=== PATIENT | male | born 1960 | race Hispanic/Latino ===

== ENCOUNTER 2019-12-10 18:34 | Inpatient (IN) | payer SELFPAY ==
[~2019-12-10] VITALS: Ht 170.2 cm; Wt 76.8 kg
[2019-12-10 19:02] LABS: BASOPHILS % 0.1 % (0.0-1.0); HEMATOCRIT 42.5 % (38.2-49.6); HEMOGLOBIN 14.1 g/dL (14.0-18.0); LYMPHOCYTES # (AUTO) 0.8 (1.0-3.2); LYMPHOCYTES % 5.6 % (18.0-39.1); MEAN CORPUSCULAR HEMOGLOBIN 30.4 pg (28-32); MEAN CORPUSCULAR HGB CONC 33.2 g/dL (31-35); MEAN CORPUSCULAR VOLUME 91.6 fL (81-99); MONOCYTES # (AUTO) 0.9 (0.2-0.8); NEUTROPHILS % 86.7 % (38.7-80.0); PLATELET COUNT 231 x10e3/uL (140-360); RED BLOOD COUNT 4.64 x10e6/uL (4.3-5.7); RED CELL DISTRIBUTION WIDTH 13.2 % (11.7-14.4)
--- NOTE | 2019-12-10 19:02 | Emergency Department Note ---
History of Present Illnes History of Present Illness Chief Complaint: COVID PUI History of Present Illness This is a 59 year old maleSICK X 3 WKS WITH ZABALA S/S. PT STATES INCREASING SOB WITH MINIMAL EXCERTION. PT AAOX4. EMS STATES PT ALREADY HAS HOME OXYGEN, BUT PT STATES HE WAS NEVER TESTED FOR ZBAALA/COVID. PT DIARRHEA, COUGH, SOB. PER EMS INITIAL O2 SATS 88% ON ROOM AIR AND 93% ON OXYGEN 4LPM VIA NC . 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, Credit Analyst/EMS Arrival Mode: [facility] Treatment LOG GETTER: IV, O2, EKG, Backboard, See EMS Report Additional Treatment LOG GETTER: 18G LEFT AC Onset (how long ago): week(s) (3) Location: CHEST Quality: SOB, COUGH Radiation: Reports non-radiation Severity: severe Onset quality: gradual Duration (how long): week(s) (3) Timing of current episode: constant Progression: worsening Chronicity: new Context: Reports recent illness (SCK FOR PAST 3 WEEKS); Denies recent surgery Relieving factors: none Exacerbating factors: movement Associated symptoms: Reports cough, Reports shortness of breath, Reports other (DIARRHEA) Treatments prior to arrival: none Past Medical/Family History Physician Review I have reviewed the patient's past medical and family history. Any updates have been documented here. Past Medical History Recent Fever: No Clinical Suspicion of Infectio: Yes New/Unexplained Change in Ment: No Past Medical History: Hypertension Past Surgical History: None Social History Smoking Cessation: Never Smoker Counseling Performed: No Alcohol Use: None Any Illegal Drug Use: No Physically hurt or threatened: No Family History Family history of heart diseas: No Other family history HTN Other Any Pre-Existing Lines (PICC,: No Review of Systems Review of Systems Constitutional: Reports no symptoms EENTM: Reports no symptoms Cardiovascular: Reports no symptoms Respiratory: Reports as per HPI Gastrointestinal: Reports as per HPI Genitourinary: Reports no symptoms Musculoskeletal: Reports no symptoms Integumentary: Reports no symptoms Neurological: Reports no symptoms Psychological: Reports no symptoms Endocrine: Reports no symptoms Hematological/Lymphatic: Reports no symptoms Physical Exam Related Data Allergies: Coded Allergies: No Known Allergies (Unverified , 12/10/19) Triage Vital Signs Vital Signs Date Time Temp Pulse Resp B/P (MAP) Pulse Ox O2 Delivery O2 Flow Rate FiO2 12/10/19 18:37 99.1 66 24 164/87 93 Nasal Cannula 4.0 Vital signs reviewed: Yes Physical Exam CONSTITUTIONAL Constitutional: Present well-developed, Present well-nourished HENT HENT: Present normocephalic, Present atraumatic, Present oropharynx clear/moist , Present nose normal HENT L/R: Present left ext ear normal, Present right ext ear normal EYES Eyes: Reports PERRL, Reports conjunctivae normal NECK Neck: Present ROM normal PULMONARY Pulmonary: Present effort normal, Present respiratory distress (MILD TACHYPNEA RR 24. ), Present rhonchi (MILD AT BASES BILATERAL) CARDIOVASCULAR Cardiovascular: Present regular rhythm, Present heart sounds normal, Present capillary refill normal, Present normal rate GASTROINTESTINAL Abdominal: Present soft, Present nontender, Present bowel sounds normal GENITOURINARY Genitourinary: Present exam deferred SKIN Skin: Present warm, Present dry MUSCULOSKELETAL Musculoskeletal: Present ROM normal NEUROLOGICAL Neurological: Present alert, Present oriented x 3, Present no gross motor or sensory deficits PSYCHOLOGICAL Psychological: Present mood/affect normal, Present judgement normal Results Laboratory Laboratory Laboratory Tests Test 12/10/19 18:45 White Blood Count 14.95 x10e3/uL (4.8-10.8) Red Blood Count 4.64 x10e6/uL (4.3-5.7) Hemoglobin 14.1 g/dL (14.0-18.0) Hematocrit 42.5 % (38.2-49.6) Mean Corpuscular Volume 91.6 fL (81-99) Mean Corpuscular Hemoglobin 30.4 pg (28-32) Mean Corpuscular Hemoglobin Concent 33.2 g/dL (31-35) Red Cell Distribution Width 13.2 % (11.7-14.4) Platelet Count 231 x10e3/uL (140-360) Neutrophils (%) (Auto) 86.7 % (38.7-80.0) Lymphocytes (%) (Auto) 5.6 % (18.0-39.1) Monocytes (%) (Auto) 6.0 % (4.4-11.3) Eosinophils (%) (Auto) 0.0 % (0.0-6.0) Basophils (%) (Auto) 0.1 % (0.0-1.0) Neutrophils # (Auto) 13.0 (2.1-6.9) Lymphocytes # (Auto) 0.8 (1.0-3.2) Monocytes # (Auto) 0.9 (0.2-0.8) Eosinophils # (Auto) 0.0 (0.0-0.4) Basophils # (Auto) 0.0 (0.0-0.1) Absolute Immature Granulocyte (auto 0.24 x10e3/uL (0-0.1) Prothrombin Time 14.6 seconds (11.9-14.5) Prothromb Time International Ratio 1.08 Activated Partial Thromboplast Time 23.5 seconds (23.8-35.5) Sodium Level 139 mmol/L (136-145) Potassium Level 4.9 mmol/L (3.5-5.1) Chloride Level 106 mmol/L (98-107) Carbon Dioxide Level 21 mmol/L (22-29) Anion Gap 16.9 mmol/L (8-16) Blood Urea Nitrogen 31 mg/dL (7-26) Creatinine 1.22 mg/dL (0.72-1.25) Estimat Glomerular Filtration Rate > 60 ML/MIN (60-) BUN/Creatinine Ratio 25 (6-25) Glucose Level 120 mg/dL (74-118) Calcium Level 7.8 mg/dL (8.4-10.2) Total Bilirubin 0.5 mg/dL (0.2-1.2) Aspartate Amino Transf (AST/SGOT) 51 IU/L (5-34) Alanine Aminotransferase (ALT/SGPT) 22 IU/L (0-55) Alkaline Phosphatase 64 IU/L (40-150) Creatine Kinase 148 IU/L (30-200) Creatine Kinase MB 1.00 ng/mL (0-5.0) Troponin I 0.006 ng/mL (0-0.300) B-Type Natriuretic Peptide 151.6 pg/mL (0-100) Total Protein 6.3 g/dL (6.5-8.1) Albumin 2.5 g/dL (3.5-5.0) Globulin 3.8 g/dL (2.3-3.5) Albumin/Globulin Ratio 0.7 (0.8-2.0) Laboratory Tests Test 12/10/19 18:45 Lab results reviewed: Yes Imaging Imaging results reviewed: Yes Impressions Procedure: [id number] DX/CHEST SINGLE (PORTABLE) Exam Date: 12/10/19 Exam Time: 1912 REPORT STATUS: Signed EXAMINATION: CHEST SINGLE (PORTABLE) INDICATION: Shortness of breath and hypoxia. COMPARISON: None FINDINGS: TUBES and LINES: None. LUNGS: Low lung volumes with bronchovascular crowding. There is diffuse interstitial prominence throughout both lungs. PLEURA: No pleural effusion or pneumothorax. HEART AND MEDIASTINUM: The heart is mildly enlarged. Mediastinal contours within normal limits. BONES AND SOFT TISSUES: No acute osseous lesion. Soft tissues are unremarkable. UPPER ABDOMEN: No free air under the diaphragm. IMPRESSION: Cardiomegaly with diffuse interstitial prominence throughout both lungs which most likely interstitial pulmonary edema. Superimposed multifocal infection cannot be excluded. Follow-up to resolution. Signed by: Lina Pino MD on 12/10/2019 7:34 PM Dictated By: LINA PINO MD 193 Procedures 12 Lead ECG Interpretation ECG Interpretation : ECG: ECG 1 Brusher Tender: Interpreted by ED physician Date: Dec 10, 2019 Time: 18:34 Rhythm: sinus rhythm Rate: normal BPM: 66 QRS axis: normal ST segments normal: Yes T waves normal: Yes Other findings: no other findings Clinical Impression: non-specific ECG Additional Comments MOTION ARTIFACT PRESENT Critical Care Time Total Critical Care Time (min): 31 Critcal care necessary due to: respiratory failure Critcal care time spent by me: develop tx plan w patient/surrogate, interpret cardiac output measures, evaluation patient response to tx, examination of patient, obtaining hx from patient/surrogate, order/perform tx or interventions, order/review laboratory studies, order/review radiographic studies, pulse oximetry, re-evaluation of patient condition Assessment & Plan Medical Decision Making MDM PT WITH SOB, COUGH, HYPOXIA REQUIRING SUPPLEMENTAL OXYGEN CBC, CMP, BLOOD CULTURE, COVID 19, EKG, CARDIAC ENZYMES,CXR ORDERED TO EVAL FOR PNEUMONIA, PULMONARY EDEMA,MYOCARDIAL INFARCTION, COVID 19, ELECTROLYTE ABNORMALITY ROCEPHIN 1 GRAM IV ORDERED ZITHROMAX 500 MG IV ORDERED DEXAMETHASONE 6 MG IV ORDERED CXR SHOWS EVIDENCE OF PULMONARY EDEMA BUT CANT RULE OUT MULTIFOCAL INFILTRATES, BNP SIGHTLY ELEVATED AT 151, NO PEDAL EDEMA, BREATH SOUNDS ARE NOT CONSISTENT WITH CHF EITHER. LASIX 40 MG IV ORDERED, COVID 19 TEST IS STILL PENDING I SPOKE WITH DR SOSA, DR CUELLO, AND LEFT A MESSAGE FOR DR HECK Reassessment Reassessment time: 19:35 Reassessment PT'S OXYGEN SATURATION DROPPED TO 89 % NOW WILL REQUIRE HIGH FLOW 02 VIA NC. ON HIGH FLOW O2 15LPM VIA NC OXYGEN SATURATION IS 96%. Assessment & Plan Final Impression: (1) Suspected COVID-19 virus infection (2) Hypoxemia requiring supplemental oxygen Depart Disposition: ADMITTED Last Vital Signs Date Time Temp Pulse Resp B/P (MAP) Pulse Ox O2 Delivery O2 Flow Rate FiO2 12/10/19 18:50 65 29 144/85 94 Nasal Cannula 6.0 12/10/19 18:37 99.1 Medications in the ED Ceftriaxone Sodium 50 ml @ 100 mls/hr ONCE ONCE IV ; Start 12/10/19 at 18:45; Stop 12/10/19 at 19:14; Status UNV Azithromycin 250 ml @ 200 mls/hr NOW ONCE IV ; Start 12/10/19 at 18:45; Stop 12/10/19 at 19:59; Status UNV Dexamethasone Sodium Phosphate 6 mg ONCE ONCE IV ; Start 12/10/19 at 18:45; Stop 12/10/19 at 18:46; Status UNV BRIAN UREÑA MD Dec 10, 2019 19:01
[2019-12-10] MEDS ORDERED: CEFTRIAXONE SOD 1 GM/NS 50 ML 50 ML IV ONE (19:09)
[2019-12-10] MEDS ORDERED: AZITHROMYCIN 500MG/NS 250 ML 250 ML IV ONE (19:10)
[2019-12-10 19:12] LABS: INR 1.08; PROTHROMBIN TIME 14.6 seconds (11.9-14.5)
[2019-12-10 19:13] LABS: PARTIAL THROMBOPLASTIN TIME 23.5 seconds (23.8-35.5)
[2019-12-10] MEDS ORDERED: DEXAMETHASONE SOD PHOS INJ 4 MG/ML VIAL IV ONE (19:15)
[2019-12-10 19:22] LABS: ALANINE AMINOTRANSFERASE 22 IU/L (0-55); ALBUMIN 2.5 g/dL (3.5-5.0); ALBUMIN/GLOBULIN RATIO 0.7 (0.8-2.0); ALKALINE PHOSPHATASE 64 IU/L (40-150); ANION GAP 16.9 mmol/L (8-16); BLOOD UREA NITROGEN 31 mg/dL (7-26); BUN/CREATININE RATIO 25 (6-25); CALCIUM 7.8 mg/dL (8.4-10.2); CARBON DIOXIDE 21 mmol/L (22-29); CHLORIDE 106 mmol/L (98-107); CREATINE KINASE 148 IU/L (30-200); CREATININE, SERUM 1.22 mg/dL (0.72-1.25); EST GLOMERULAR FILTRATION RATE > 60 ML/MIN (60-); GLUCOSE 120 mg/dL (74-118); POTASSIUM 4.9 mmol/L (3.5-5.1); SODIUM 139 mmol/L (136-145)
--- NOTE | 2019-12-10 19:37 | Diagnostic Imaging Report ---
EXAMINATION: CHEST SINGLE (PORTABLE) INDICATION: Shortness of breath and hypoxia. COMPARISON: None FINDINGS: TUBES and LINES: None. LUNGS: Low lung volumes with bronchovascular crowding. There is diffuse interstitial prominence throughout both lungs. PLEURA: No pleural effusion or pneumothorax. HEART AND MEDIASTINUM: The heart is mildly enlarged. Mediastinal contours within normal limits. BONES AND SOFT TISSUES: No acute osseous lesion. Soft tissues are unremarkable. UPPER ABDOMEN: No free air under the diaphragm. IMPRESSION: Cardiomegaly with diffuse interstitial prominence throughout both lungs which most likely interstitial pulmonary edema. Superimposed multifocal infection cannot be excluded. Follow-up to resolution. Signed by: Lina Alcantara MD on 12/10/2019 7:34 PM
--- NOTE | 2019-12-10 19:41 | NUR ---
patient O2 sat 90% on 6 liters per nasal cannula while at rest on gurney. MD notified, RT contacted to initiate high flow.
[2019-12-10] MEDS ORDERED: FUROSEMIDE INJ 10 MG/ML 4 ML VIAL IV ONE (21:30)
[2019-12-10] MEDS ORDERED: ACETAMINOPHEN 325 MG TAB PO PRN (23:00)
[2019-12-10] MEDS ORDERED: SODIUM CHLORIDE FLUSH 10 ML SYR INJ PRN (23:00)
--- NOTE | 2019-12-10 23:05 | NUR ---
Handoff report received from Karina MENSAH
[2019-12-10] MEDS ORDERED: ENOXAPARIN INJ 80 MG/0.8 ML SYR SC SCH (23:10)
[2019-12-10] MEDS: CEFTRIAXONE SOD 1 GRAM/0.9% SOD CHL 50ML BAG IV SCH (23:35)
[2019-12-10] MEDS: AZITHROMYCIN 500MG/SOD CHL 0.9% 250ML BAG IV SCH (23:37)
[2019-12-10] MEDS: DEXAMETHASONE 10MG/ML PF INJ IV SCH (23:37)
[2019-12-11] VITALS (15 sets, daily range): BP systolic 108–153; BP diastolic 48–91
--- NOTE | 2019-12-11 05:48 | NUR ---
H&P cc: sob HPI: 59yoM, PCP none, developed worsening SOB, found to have PNA and pulmonary edema. Pt has been SOB for 2 weeks. Also had N/V/D and f/c/S during this period. 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 No know COVID sick contact, per pt. PMH: none PSHx: none ALlergies; see emr FH/SH; no cigs/illicits; works as winch truck operator meds; see MAR ROS; no vision changes/skin rash/cp/dizziness/confusion/focal limb weakness/depression v/s revd PE tired appearing anicteric ns1s2 reduced BS throughout; mildly coarse; soft nt nd no e/t skin dry flat affect a&ox3; toure labs/meds revd A/P: 59yoM Multifocal PNA- ceftriaxone/azithromycin PUlmonary edema- Acute resp failure- Highflo O2 support MARTA- monitor closely; avoid nephrotoxic agents Prop: scd; lovenox; dispo:cct>35mins Ildefonso Cast MD, PhD.
[2019-12-11 05:57] LABS: BASOPHILS % 0.2 % (0.0-1.0); HEMATOCRIT 41.7 % (38.2-49.6); HEMOGLOBIN 13.8 g/dL (14.0-18.0); LYMPHOCYTES # (AUTO) 0.8 (1.0-3.2); LYMPHOCYTES % 6.4 % (18.0-39.1); MEAN CORPUSCULAR HEMOGLOBIN 30.6 pg (28-32); MEAN CORPUSCULAR HGB CONC 33.1 g/dL (31-35); MEAN CORPUSCULAR VOLUME 92.5 fL (81-99); MONOCYTES # (AUTO) 0.6 (0.2-0.8); MONOCYTES % 5.1 % (4.4-11.3); NEUTROPHILS # (AUTO) 10.6 (2.1-6.9); NEUTROPHILS % 86.6 % (38.7-80.0); PLATELET COUNT 207 x10e3/uL (140-360); RED BLOOD COUNT 4.51 x10e6/uL (4.3-5.7); RED CELL DISTRIBUTION WIDTH 13.3 % (11.7-14.4)
[2019-12-11] MEDS ORDERED: DOCUSATE SODIUM 100 MG CAP PO PRN (06:00)
[2019-12-11] MEDS ORDERED: ONDANSETRON HCL INJ 2MG/ML 2ML 2 MG/ML VIAL IV PRN (06:00)
[2019-12-11] MEDS ORDERED: ZOLPIDEM TARTRATE 5 MG TAB PO PRN (06:00)
[2019-12-11 06:37] LABS: ALBUMIN 2.3 g/dL (3.5-5.0); ALBUMIN/GLOBULIN RATIO 0.6 (0.8-2.0); ANION GAP 15.8 mmol/L (8-16); CREATININE, SERUM 1.41 mg/dL (0.72-1.25); POTASSIUM 4.8 mmol/L (3.5-5.1)
[2019-12-11 06:58] LABS: CREATINE KINASE MB 0.8 ng/mL (0-5.0)
--- NOTE | 2019-12-11 08:39 | Diagnostic Imaging Report ---
EXAM: CHEST SINGLE (PORTABLE) DATE: 12/11/2019 4:50 AM INDICATION: Pneumonia COMPARISON: 12/10/2019 FINDINGS: Again identified are increased interstitial opacities throughout the lungs bilaterally, similar to the prior examination. There is no evidence for lobar consolidation, pneumothorax, or significant volume pleural effusion. The cardiomediastinal silhouette is stable in appearance. No acute osseous abnormality is identified. IMPRESSION: Stable appearing interstitial opacities identified throughout the lungs bilaterally. Findings are nonspecific but can be seen in setting of edema or a multifocal/viral infectious process. Signed by: Dr. Harish Dumas MD on 12/11/2019 8:35 AM
--- NOTE | 2019-12-11 08:59 | NUR ---
GAVE PACKET OF INFORMATION WITH COMM[facility]ITY [employer] FOR ASSISTANCE WITH LOW TO NO INCOME TO PATIENT. RESOURCES THAT PATIENT MAY BE ABLE TO FOLLOW UP UPON DISCHARGE. PT EDUCATED ON EACH RESOURCE AND UNDERSTANDING HOW TO FOLLOW UP TO SEE IF QUALIFIED FOR EACH RESOURCE.
[2019-12-11] MEDS ORDERED: ENOXAPARIN INJ 80 MG/0.8 ML SYR SC SCH (09:00)
--- NOTE | 2019-12-11 09:22 | Consultation ---
DATE OF CONSULTATION: Pulmonary Consultation HISTORY OF PRESENT ILLNESS: The patient of Dr. Ildefonso Cast, reported unknown clinic. Apparently, he tested positive for COVID-19 three weeks ago. Initially, he had burning in his chest, diarrhea, and generalized weakness and loss of appetite. This week, he became increasingly short of breath. His cousin is also ill, but apparently recovered. ALLERGIES: HE HAS NO KNOWN ALLERGIES. PAST MEDICAL HISTORY: He has a history of hypertension. MEDICATIONS: No medications. SOCIAL HISTORY: Born in [place]. 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 PHYSICAL EXAMINATION: GENERAL: He is a well-developed white male, comfortable on nasal oxygen at 15 L. VITAL SIGNS: Temperature 98.4, pulse 61, respirations 18, blood pressure 151/82. HEAD: Normocephalic and atraumatic. NECK: Trachea midline. LUNGS: Bilateral rales. HEART: Regular rhythm. ABDOMEN: Nontender. EXTREMITIES: Nonedematous. IMPRESSION: COVID-19 pneumonia, cannot completely exclude superinfection illness, last three weeks, hypoxic now and hypertension. PLAN: Supportive care, Decadron, moderate dose Lovenox. Creatinine is moderately elevated at 1.4, but we will increase the Lovenox dose to 40 mg b.i.d., also recommended. ICU care, high-flow oxygen and AIRVO, if further desaturation is noted. Currently, saturation is 94% on 15 L nasal cannula. Thank you for this kind referral. MD KORY Lr/MODL /[id number]
[2019-12-11] MEDS ORDERED: ATENOLOL50 MG PO (09:49)
[2019-12-11] MEDS: LOSARTAN POTASSIUM 25 MG TAB PO SCH (12:51)
[2019-12-11] MEDS: ENOXAPARIN SOD INJ 40 MG/0.4 ML SYR SC SCH ×2 (12:52→23:14)
--- NOTE | 2019-12-11 13:08 | NUR ---
Discontinuing PT services since patient is Mod I in functional mobility. Thank you. Addendum: 12/11/19 at 1308 by Marck tanner PT Amended: Links added.
[2019-12-11 17:44] LABS: CREATINE KINASE MB 0.5 ng/mL (0-5.0)
[2019-12-11] MEDS: CEFTRIAXONE SOD 1 GRAM/0.9% SOD CHL 50ML BAG IV SCH (23:03)
[2019-12-11] MEDS ORDERED: SODIUM CHLORIDE 0.9% 250ML 250 ML ONE (23:19)
--- NOTE | 2019-12-11 23:46 | Consultation ---
DATE OF CONSULTATION: HISTORY OF PRESENT ILLNESS: Mr. Austin is a 59-year-old male who was tested positive for COVID three weeks ago. The patient comes in with shortness of breath. The patient had chest pain, diarrhea, weakness this week with some shortness of breath. The patient was admitted. PAST MEDICAL HISTORY: Otherwise unremarkable. PAST SURGICAL HISTORY: Otherwise unremarkable. LABORATORY DATA: Reviewed. White count 12.2, hemoglobin of 13. His COVID was positive. His sodium 139, potassium 4.9, creatinine 1.22, albumin 2.5. MEDICATIONS: The patient is currently on Lovenox, Cozaar, dexamethasone, azithromycin, ceftriaxone. PHYSICAL EXAMINATION: GENERAL: He is currently alert, oriented. VITAL SIGNS: Stable, currently afebrile. HEENT: He is not icteric. NECK: Supple. CHEST: Crackles bilaterally. HEART: S1, S2. ABDOMEN: Soft. IMPRESSION: Coronavirus disease-19, respiratory failure. Too late for remdesivir. Agree with antibiotic as ordered. Decadron. Lovenox. Supportive care. We will follow. MD MEDHAT Tong/VINANEY /[id number]
[2019-12-12] VITALS (20 sets, daily range): BP systolic 99–120; BP diastolic 64–104
[2019-12-12] MEDS: AZITHROMYCIN 500MG/SOD CHL 0.9% 250ML BAG IV SCH ×2 (00:25→22:48)
[2019-12-12] MEDS: DEXAMETHASONE 10MG/ML PF INJ IV SCH (00:30)
--- NOTE | 2019-12-12 04:28 | NUR ---
"chair" denotes prone position in documentation of Q2 hour turns/repositioning.
[2019-12-12 05:30] LABS: BASOPHILS % 0.2 % (0.0-1.0); EOSINOPHILS # (AUTO) 0.1 (0.0-0.4); EOSINOPHILS % 0.4 % (0.0-6.0); HEMOGLOBIN 14.3 g/dL (14.0-18.0); LYMPHOCYTES # (AUTO) 0.6 (1.0-3.2); LYMPHOCYTES % 4.8 % (18.0-39.1); MEAN CORPUSCULAR HEMOGLOBIN 30.5 pg (28-32); MEAN CORPUSCULAR HGB CONC 32.5 g/dL (31-35); MEAN CORPUSCULAR VOLUME 93.8 fL (81-99); MONOCYTES # (AUTO) 0.4 (0.2-0.8); MONOCYTES % 3.1 % (4.4-11.3); NEUTROPHILS # (AUTO) 11.5 (2.1-6.9); NEUTROPHILS % 89.1 % (38.7-80.0); PLATELET COUNT 231 x10e3/uL (140-360); RED BLOOD COUNT 4.69 x10e6/uL (4.3-5.7); RED CELL DISTRIBUTION WIDTH 13.3 % (11.7-14.4)
--- NOTE | 2019-12-12 06:42 | NUR ---
IM progress note O/N see below ROS; no vision changes/skin rash/cp/dizziness/confusion/focal limb weakness/depression v/s revd PE tired appearing anicteric ns1s2 reduced BS throughout; mildly coarse; soft nt nd no e/t skin dry flat affect a&ox3; toure labs/meds revd A/P: 59yoM Multifocal PNA- ceftriaxone/azithromycin PUlmonary edema- Acute resp failure- Highflo O2 support MARTA- monitor closely; avoid nephrotoxic agents Prop: scd; lovenox; dispo:cct>35mins 7-30 cont care; f/u renal fn; cont care; Ildefonso Cast MD, PhD.
[2019-12-12 07:06] LABS: ALBUMIN 2.2 g/dL (3.5-5.0); ALBUMIN/GLOBULIN RATIO 0.5 (0.8-2.0); ANION GAP 12.9 mmol/L (8-16); CALCIUM 8.2 mg/dL (8.4-10.2); CREATININE, SERUM 1.36 mg/dL (0.72-1.25); POTASSIUM 4.9 mmol/L (3.5-5.1)
[2019-12-12] MEDS: LOSARTAN POTASSIUM 25 MG TAB PO SCH (08:01)
[2019-12-12] MEDS: ASCORBIC ACID 500 MG TAB PO SCH ×2 (08:01→17:41)
[2019-12-12] MEDS: ZINC SULFATE 220 MG CAP PO SCH (08:01)
--- NOTE | 2019-12-12 08:39 | Diagnostic Imaging Report ---
X-ray chest AP portable Comparison: 12/10/2019 History: Covid pneumonia Findings: There is significant patient rotation on this film. Central airways unremarkable. Heart size normal. No definite pleural effusion. No pneumothorax. Asymmetric lung infiltrates with airspace/interstitial type disease pattern in the entire right lung in a heterogeneous pattern and mostly interstitial disease pattern in the left lung. No acute changes in the visualized skeletal structures are upper abdomen. Impression: Considering a different technique, there is significant worsening of the infiltrates in the right lung. Signed by: Ravin Amador MD on 12/12/2019 8:36 AM
--- NOTE | 2019-12-12 10:53 | NUR ---
Grommet Man called pt's nephewCarlos ([phone]) to offer emotional/spiritual support. Pt's nephew states he has been texting and using Ver[employer] to communicate w/ family on a daily basis. Pt's nephew open for [employer] follow up. Grommet Man provided information on how to communicate, if needed. Provided prayer. Pt's nephew expressed appreciation for call. Will follow up as able. THAD Herrera Spiritual Care Department O: [phone]
[2019-12-12] MEDS: ENOXAPARIN SOD INJ 40 MG/0.4 ML SYR SC SCH ×2 (12:15→23:11)
[2019-12-12] MEDS: CEFTRIAXONE SOD 1 GRAM/0.9% SOD CHL 50ML BAG IV SCH (22:12)
--- NOTE | 2019-12-12 22:15 | NUR ---
"chair" position denotes prone position in charting.
[2019-12-12] MEDS ORDERED: DEXAMETHASONE SOD PHOS INJ 4 MG/ML VIAL ONE (22:53)
[2019-12-12] MEDS: DEXAMETHASONE SOD PHOS INJ 4 MG/ML VIAL IV SCH (23:49)
[2019-12-13] VITALS (14 sets, daily range): BP systolic 98–125; BP diastolic 65–77
[2019-12-13 05:22] LABS: BASOPHILS % 0.1 % (0.0-1.0); EOSINOPHILS # (AUTO) 0.1 (0.0-0.4); EOSINOPHILS % 0.5 % (0.0-6.0); HEMATOCRIT 42.3 % (38.2-49.6); LYMPHOCYTES # (AUTO) 0.6 (1.0-3.2); MEAN CORPUSCULAR HEMOGLOBIN 32.2 pg (28-32); MEAN CORPUSCULAR HGB CONC 33.1 g/dL (31-35); MEAN CORPUSCULAR VOLUME 97.2 fL (81-99); MONOCYTES # (AUTO) 0.5 (0.2-0.8); MONOCYTES % 3.8 % (4.4-11.3); NEUTROPHILS # (AUTO) 10.8 (2.1-6.9); NEUTROPHILS % 88.9 % (38.7-80.0); PLATELET COUNT 218 x10e3/uL (140-360); RED BLOOD COUNT 4.35 x10e6/uL (4.3-5.7); RED CELL DISTRIBUTION WIDTH 13.3 % (11.7-14.4)
[2019-12-13 05:50] LABS: CALCIUM 8.3 mg/dL (8.4-10.2); CREATININE, SERUM 1.3 mg/dL (0.72-1.25)
--- NOTE | 2019-12-13 06:45 | NUR ---
IM progress note O/N see below ROS; no vision changes/skin rash/cp/dizziness/confusion/focal limb weakness/depression v/s revd PE tired appearing anicteric ns1s2 reduced BS throughout; mildly coarse; soft nt nd no e/t skin dry flat affect a&ox3; toure labs/meds revd A/P: 59yoM Multifocal PNA- ceftriaxone/azithromycin PUlmonary edema- Acute resp failure- Highflo O2 support MARTA- monitor closely; avoid nephrotoxic agents Prop: scd; lovenox; dispo:cct>35mins 7-30 cont care; f/u renal fn; cont care; 7-31 renal fn improving; CXR worse yesterday; supportive care; Ildefonso Cast MD, PhD.
[2019-12-13] MEDS: LOSARTAN POTASSIUM 25 MG TAB PO SCH (07:41)
[2019-12-13] MEDS: ZINC SULFATE 220 MG CAP PO SCH (07:42)
[2019-12-13] MEDS: ASCORBIC ACID 500 MG TAB PO SCH ×2 (07:42→17:58)
--- NOTE | 2019-12-13 09:47 | Progress Note ---
DATE: SUBJECTIVE: Mr. Austin remains in intensive care unit. PHYSICAL EXAMINATION: GENERAL: Currently alert, comfortable. VITAL SIGNS: Stable, afebrile. HEENT: Not icteric. NECK: Supple. CHEST: Clear. IMPRESSION: 1. Respiratory failure, on high-flow. 2. COVID-19, case was discussed with medical team. 3. Continue with plan as ordered, he is on vitamin C, Lovenox, dexamethasone, azithromycin, and Rocephin . Trae Arvizu MD ZS/MODL /[id number]
--- NOTE | 2019-12-13 13:00 | NUR ---
PATIENT TRANSFERRED FROM ICU TO ROOM 199, PATIENT IS AWAKE ALERT AND ORIENTED X3, VERBALIZING NEEDS, PLACED ON TELEMETRY, SINUS RHYTHM, HE IS ON 15L HIGH FLOW WITH NON-REBREATHER. REQUESTED BEDSIDE COMMODE, PLACED AT BEDSIDE, REQUESTED WIPES GIVEN TO PATIENT. BED IN LOW POSITION, BREAKS ON, BELONGINGS AND CALL LIGHT WITHIN REACH INSTRUCTED TO USE CALL LIGHT WHEN NEEDING ASSISTANCE, VERBALIZED UNDERSTANDING.
--- NOTE | 2019-12-13 16:48 | NUR ---
progress note HYSICAL EXAMINATION: GENERAL: He is currently alert, oriented. VITAL SIGNS: Stable, currently afebrile. HEENT: He is not icteric. NECK: Supple. CHEST: Crackles bilaterally. HEART: S1, S2. ABDOMEN: Soft. IMPRESSION: Coronavirus disease-19, respiratory failure. Too late for remdesivir. Agree with antibiotic as ordered. Decadron. Lovenox. Supportive care. We will follow. cont oxygen cont treatment
[2019-12-13] MEDS: ENOXAPARIN SOD INJ 40 MG/0.4 ML SYR SC SCH (17:58)
[2019-12-13] MEDS ORDERED: SODIUM CHLORIDE 0.9% 250ML 250 ML ONE (21:35)
[2019-12-13] MEDS: CEFTRIAXONE SOD 1 GRAM/0.9% SOD CHL 50ML BAG IV SCH (22:30)
[2019-12-13] MEDS: DEXAMETHASONE SOD PHOS INJ 4 MG/ML VIAL IV SCH (22:30)
[2019-12-13] MEDS: AZITHROMYCIN 500MG/SOD CHL 0.9% 250ML BAG IV SCH (23:00)
[2019-12-14] VITALS (10 sets, daily range): BP systolic 92–122; BP diastolic 62–77
[2019-12-14] MEDS: ENOXAPARIN SOD INJ 40 MG/0.4 ML SYR SC SCH ×2 (05:00→17:15)
--- NOTE | 2019-12-14 06:14 | NUR ---
Pt resting in bed asleep, easily aroused. No s/sx of acute distress. Pt asked this nurse when one of the O2 would be removed. NRB removed and observed pt drop O2 sats to mid 80's in short period of time. Educated pt on O2 therapy and saturation for body, pt verbalized understanding. Up to side of bed to urinate with no diff. VSS bed in low position and locked, personal items and all light within reach Will pass report to oncoming staff. Pt reports no discomfort at this time.
--- NOTE | 2019-12-14 07:02 | NUR ---
IM progress note O/N see below ROS; no vision changes/skin rash/cp/dizziness/confusion/focal limb weakness/depression v/s revd PE tired appearing anicteric ns1s2 reduced BS throughout; mildly coarse; soft nt nd no e/t skin dry flat affect a&ox3; toure labs/meds revd A/P: 59yoM Multifocal PNA- ceftriaxone/azithromycin PUlmonary edema- Acute resp failure- Highflo O2 support MARTA- monitor closely; avoid nephrotoxic agents Prop: scd; lovenox; dispo:cct>35mins 7-30 cont care; f/u renal fn; cont care; 7-31 renal fn improving; CXR worse yesterday; supportive care; 8-1 check labs; high O2 needs; cont care; Ildefonso Cast MD, PhD.
[2019-12-14] MEDS: ASCORBIC ACID 500 MG TAB PO SCH ×2 (09:58→17:15)
[2019-12-14] MEDS: ZINC SULFATE 220 MG CAP PO SCH (09:58)
[2019-12-14] MEDS: LOSARTAN POTASSIUM 25 MG TAB PO SCH (09:59)
--- NOTE | 2019-12-14 19:58 | NUR ---
Received pt in bed awake a/o x4. No c/o discomfort, no s/sx of acute distress. Bed in low and locked position with personal items and call light within reach. Resp even and unlabored at this time, Hi flow NRB and nc remain in place. Will con to monitor
[2019-12-14] MEDS: DEXAMETHASONE SOD PHOS INJ 4 MG/ML VIAL IV SCH (22:00)
[2019-12-14] MEDS: CEFTRIAXONE SOD 1 GRAM/0.9% SOD CHL 50ML BAG IV SCH (23:00)
[2019-12-14] MEDS: AZITHROMYCIN 500MG/SOD CHL 0.9% 250ML BAG IV SCH (23:30)
[2019-12-15] VITALS (8 sets, daily range): BP systolic 94–136; BP diastolic 68–86
[2019-12-15] MEDS: ENOXAPARIN SOD INJ 40 MG/0.4 ML SYR SC SCH ×2 (05:00→16:26)
[2019-12-15 06:16] LABS: BASOPHILS % 0.1 % (0.0-1.0); EOSINOPHILS % 0.1 % (0.0-6.0); HEMATOCRIT 43.5 % (38.2-49.6); HEMOGLOBIN 14.3 g/dL (14.0-18.0); LYMPHOCYTES # (AUTO) 0.5 (1.0-3.2); LYMPHOCYTES % 4.8 % (18.0-39.1); MEAN CORPUSCULAR HEMOGLOBIN 31.4 pg (28-32); MEAN CORPUSCULAR HGB CONC 32.9 g/dL (31-35); MEAN CORPUSCULAR VOLUME 95.6 fL (81-99); MONOCYTES # (AUTO) 0.4 (0.2-0.8); MONOCYTES % 4.2 % (4.4-11.3); NEUTROPHILS % 89.2 % (38.7-80.0); PLATELET COUNT 231 x10e3/uL (140-360); RED BLOOD COUNT 4.55 x10e6/uL (4.3-5.7); RED CELL DISTRIBUTION WIDTH 12.9 % (11.7-14.4)
[2019-12-15 06:44] LABS: ANION GAP 12.1 mmol/L (8-16); BLOOD UREA NITROGEN 37 mg/dL (7-26); BUN/CREATININE RATIO 34 (6-25); CALCIUM 8.7 mg/dL (8.4-10.2); CARBON DIOXIDE 23 mmol/L (22-29); CHLORIDE 108 mmol/L (98-107); CREATININE, SERUM 1.08 mg/dL (0.72-1.25); EST GLOMERULAR FILTRATION RATE > 60 ML/MIN (60-); GLUCOSE 139 mg/dL (74-118); POTASSIUM 5.1 mmol/L (3.5-5.1); SODIUM 138 mmol/L (136-145)
[2019-12-15] MEDS: ZINC SULFATE 220 MG CAP PO SCH (09:50)
[2019-12-15] MEDS: ASCORBIC ACID 500 MG TAB PO SCH ×2 (09:50→16:26)
[2019-12-15] MEDS: LOSARTAN POTASSIUM 25 MG TAB PO SCH (09:53)
--- NOTE | 2019-12-15 10:46 | Diagnostic Imaging Report ---
EXAMINATION: CHEST SINGLE (PORTABLE) INDICATION: Follow-up pneumonia. COMPARISON: Multiple prior chest x-rays including most recent on 12/12/2019. FINDINGS: TUBES and LINES: None. LUNGS: Interval improvement of multifocal patchy airspace opacity compatible with known pneumonia. PLEURA: No pleural effusion or pneumothorax. HEART AND MEDIASTINUM: The cardiomediastinal silhouette is unchanged. BONES AND SOFT TISSUES: No acute osseous lesion. Soft tissues are unremarkable. UPPER ABDOMEN: No free air under the diaphragm. IMPRESSION: Interval improvement in patchy airspace opacities throughout both lungs compatible with known multifocal pneumonia. Signed by: Lina Alcantara MD on 12/15/2019 10:42 AM
--- NOTE | 2019-12-15 13:25 | NUR ---
INFECTIOUS DISEASE PROGRESS NOTE DR HECK SUBJECTIVE: Mr. Austin remains in intensive care unit. PHYSICAL EXAMINATION: GENERAL: Currently alert, comfortable. VITAL SIGNS: Stable, afebrile. HEENT: Not icteric. NECK: Supple. CHEST: Clear. LABS: REVIEWED RADIOLOGY: REVIEWED IMPRESSION: 1. Respiratory failure, on high-flow. 2. COVID-19, case was discussed with medical team. PLAN Continue with plan as ordered, he is on vitamin C, Lovenox, dexamethasone, azithromycin, and Rocephin PT SEEN AND EVALUATED BY DR HECK
[2019-12-15] MEDS: TAMSULOSIN HCL 0.4 MG CAP PO SCH (16:25)
--- NOTE | 2019-12-15 16:46 | NUR ---
IM progress note O/N see below ROS; no vision changes/skin rash/cp/dizziness/confusion/focal limb weakness/depression v/s revd PE tired appearing anicteric ns1s2 reduced BS throughout; mildly coarse; soft nt nd no e/t skin dry flat affect a&ox3; toure labs/meds revd A/P: 59yoM Multifocal PNA- ceftriaxone/azithromycin PUlmonary edema- Acute resp failure- Highflo O2 support MARTA- monitor closely; avoid nephrotoxic agents Prop: scd; lovenox; dispo:cct>35mins 7-30 cont care; f/u renal fn; cont care; 7-31 renal fn improving; CXR worse yesterday; supportive care; 8-1 check labs; high O2 needs; cont care; 8-2 leukocytosis resolved; renal fn impoving; flomax; wean O2 as able Ildefonso Cast MD, PhD.
[2019-12-15] MEDS: TRAMADOL HCL 50 MG TAB PO PRN (18:47)
[2019-12-15 19:05] LABS: CLARITY,URINE HAZY (CLEAR); COLOR,URINE YELLOW (YELLOW); LEUKOCYTE ESTERASE ,URINE NEGATIVE (NEGATIVE); NITRITE,URINE NEGATIVE (NEGATIVE)
[2019-12-15 19:06] LABS: BILIRUBIN,URINE NEGATIVE (NEGATIVE); KETONES,URINE NEGATIVE (NEGATIVE); PROTEIN,URINE DIPSTICK NEGATIVE (NEGATIVE); URINE UROBILINOGEN 0.2 mg/dL (0.2 - 1)
[2019-12-15 19:08] LABS: BACTERIA,URINE FEW /HPF; EPITHELIAL CELLS,URINE FEW /LPF; RBC,URINE >50 /HPF (0-5); URIC ACID CRYSTALS,URINE MODERATE (FEW)
[2019-12-15 19:09] LABS: MUCUS,URINE FEW (RARE)
[2019-12-15] MEDS: DEXAMETHASONE SOD PHOS INJ 4 MG/ML VIAL IV SCH (22:00)
[2019-12-15] MEDS: CEFTRIAXONE SOD 1 GRAM/0.9% SOD CHL 50ML BAG IV SCH (22:13)
[2019-12-15] MEDS: AZITHROMYCIN 500MG/SOD CHL 0.9% 250ML BAG IV SCH (23:13)
[2019-12-16] VITALS (9 sets, daily range): BP systolic 102–129; BP diastolic 60–83
[2019-12-16] MEDS: ENOXAPARIN SOD INJ 40 MG/0.4 ML SYR SC SCH ×2 (04:40→16:01)
[2019-12-16] MEDS: TRAMADOL HCL 50 MG TAB PO PRN ×2 (04:40→15:51)
[2019-12-16] MEDS: TAMSULOSIN HCL 0.4 MG CAP PO SCH (10:01)
[2019-12-16] MEDS: ASCORBIC ACID 500 MG TAB PO SCH ×2 (10:01→16:01)
[2019-12-16] MEDS: LOSARTAN POTASSIUM 25 MG TAB PO SCH (10:01)
[2019-12-16] MEDS: ZINC SULFATE 220 MG CAP PO SCH (10:01)
--- NOTE | 2019-12-16 10:19 | NUR ---
IM progress note O/N see below ROS; no vision changes/skin rash/cp/dizziness/confusion/focal limb weakness/depression v/s revd PE tired appearing anicteric ns1s2 reduced BS throughout; mildly coarse; soft nt nd no e/t skin dry flat affect a&ox3; toure labs/meds revd A/P: 59yoM Multifocal PNA- ceftriaxone/azithromycin PUlmonary edema- Acute resp failure- Highflo O2 support MARTA- monitor closely; avoid nephrotoxic agents Prop: scd; lovenox; dispo:cct>35mins 7-30 cont care; f/u renal fn; cont care; 7-31 renal fn improving; CXR worse yesterday; supportive care; 8-1 check labs; high O2 needs; cont care; 8-2 leukocytosis resolved; renal fn impoving; flomax; wean O2 as able 8-3 d/c planning; home O2 eval now; Ildefonso Cast MD, PhD.
[2019-12-16] MEDS ORDERED: FLOMAX0.4 MG PO (10:23)
[2019-12-16] MEDS ORDERED: COZAAR25 MG PO (10:23)
[2019-12-16] MEDS ORDERED: PREDNISONE20 MG PO (10:23)
[2019-12-16] MEDS ORDERED: ASCORBIC ACID500 MG PO (10:23)
[2019-12-16] MEDS ORDERED: ZITHROMAX500 MG PO (10:23)
[2019-12-16] MEDS ORDERED: ZINC SULFATE220 M1 PO (10:23)
--- NOTE | 2019-12-16 13:26 | NUR ---
RECEIVED PATIENT FROM [facility]. PATIENT NO S/S OF DISTRESS. LUNG SOUNDS CLEAR. APPLIED TELEMETRY BOX #20 SR. HOME O2 EVAL DONE AND PLACED INTO PATIENTS CHART. PATIENT DOES QUALIFY FOR HOME O2. 4LNC 98%. CALL LIGHT IN REACH WILL CONTINUE TO MONITOR PATIENT.
--- NOTE | 2019-12-16 15:00 | NUR ---
SPOKE WITH DR. SOSA REGARDING PATIENT DESATTING TO 79% AFTER EXERTION. NEW ORDER TO HOLD DISCHARGE AT THIS TIME AND CONTINUE TO MONITOR PATIENT.
--- NOTE | 2019-12-16 16:39 | NUR ---
INFECTIOUS DISEASE PROGRESS NOTE DR HECK doing better today no new complaints SUBJECTIVE: Mr. Austin remains in intensive care unit. PHYSICAL EXAMINATION: GENERAL: Currently alert, comfortable. VITAL SIGNS: Stable, afebrile. HEENT: Not icteric. NECK: Supple. CHEST: Clear. LABS: REVIEWED RADIOLOGY: REVIEWED IMPRESSION: 1. Respiratory failure, on high-flow. 2. COVID-19, case was discussed with medical team. PLAN Continue with plan as ordered, he is on vitamin C, Lovenox, dexamethasone, azithromycin, and Rocephin
--- NOTE | 2019-12-16 17:17 | NUR ---
Nutrition Screen Note RD Recommendation for Physician: - Continue current diet Plan of Care: RD following, monitoring for tolerance and adequacy Nutrition reason for involvement: LOS Primary Diagnose(s): hypoxemia, COVID-19 PMH: No PMH Ht: 67 in Wt: 169.38 lb BMI: 26.5 kg/m2 IBW: [address] Assessment: 12/15: 59 YOM admitted for hypoxia found to be COVID-19+. Pt evaluated today for LOS. No wt loss or poor indicated upon admit. Pt eating well and tolerating diet, current intake ~100% of meals. No GI distress reported. Labs and meds reviewed. Chart reviewed. Will continue to monitor. Current Diet: Cardiac Malnutrition Evaluation (12/16/19) The patient does not meet criteria for a specified degree of malnutrition at this time. Will re-evaluate at follow-up as appropriate. Unable to assess per current isolation protocol for COVID-19. Diet Education Needs Assessment: Diet education not indicated. Diet tolerance: tolerating po Nutrition Care Level: low Signed: Caro Rodriguez RD, LD, [facility]
--- NOTE | 2019-12-16 19:15 | NUR ---
Patient visited in room during nursing rounds. Patient alert and oriented x3. COVID positive. Ambulatory in room prn. Pt on 3L NC. Pt on scheduled IV antibiotics and IV steroid. Pt scheduled for CT of chest tonight (to r/o PE). Call nation within reach. Will monitor closely.
--- NOTE | 2019-12-16 20:04 | NUR ---
Pt picked up from room by [employer] and was transported via wheelchair to radiology dept for CT of chest. Pt left unit in stable condition while on 3L NC.
--- NOTE | 2019-12-16 21:00 | NUR ---
Pt brought back in room and report received CT chest was not done due to infiltrated IVs (LAC and RAC).
[2019-12-16] MEDS: DEXAMETHASONE SOD PHOS INJ 4 MG/ML VIAL IV SCH (21:53)
--- NOTE | 2019-12-16 22:00 | NUR ---
After confirmed by nurse (Franklin) that IV on left AC was still working fine, patient went back for 2nd attempt on CT of chest.
--- NOTE | 2019-12-16 22:14 | Progress Note ---
DATE: Pulmonary Progress Note SUBJECTIVE: The patient has improved. The patient is still on a non-rebreather and high-flow 10 L oxygen. OBJECTIVE: VITAL SIGNS: Temperature 97.3, pulse of 78, blood pressure 122/77, on high-flow nasal cannula 100% saturation. CHEST: Clear to auscultation bilaterally. No wheezing. HEART: S1, S2 audible. LABORATORY DATA: Reviewed. ASSESSMENT/PLAN: Mr. Austin is a 59-year-old male, who has COVID-19 pneumonia with acute hypoxic respiratory failure. Continue the patient on current treatment with Lovenox, Decadron, and IV antibiotics. MD GEOVANNA Whitten/MODEdgar /[id number]
--- NOTE | 2019-12-16 22:40 | NUR ---
Pt back in room from having CT of chest. No distress or discomfort noted. Pt still on 3L NC.
[2019-12-16] MEDS ORDERED: SODIUM CHLORIDE 0.9% 50ML 50 ML ONE (22:51)
[2019-12-16] MEDS ORDERED: IOPAMIDOL 370 MG/ML 200 ML INFUS..BTL INJ ONE (22:51)
[2019-12-16] MEDS ORDERED: SODIUM CHLORIDE 0.9% 250ML 250 ML ONE (22:51)
--- NOTE | 2019-12-16 23:02 | Diagnostic Imaging Report ---
EXAM: CT Chest WITH contrast 12/16/2019 10:05 PM INDICATION: r/o pe. COMPARISON: None TECHNIQUE: Chest was scanned utilizing a multidetector helical scanner from the lung apex through the level of the adrenal glands with administration of IV contrast. Coronal and sagittal reformations were obtained. Routine protocol was performed. IV CONTRAST: 100 mL of Omnipaque 300 COMPLICATIONS: None RADIATION DOSE: Total DLP: 507.11 mGy*cm Estimated effective dose: (DLP x 0.014 x size factor) mSv CTDIvol has been reviewed. It is below the limits set by the Radiation Protocol Committee (RPC). Dose modulation, iterative reconstruction, and/or weight based adjustment of the mA/kV was utilized to reduce the radiation dose to as low as reasonably achievable. FINDINGS: LINES/ TUBES: None. LUNGS AND AIRWAYS: Diffuse groundglass and consolidative opacities in a peripheral distribution. Airways are normal. PLEURA: The pleural spaces are clear. HEART AND MEDIASTINUM: The thyroid gland is normal. No mediastinal, hilar or axillary lymphadenopathy. The heart is normal in size. There is no pericardial effusion. Mild coronary artery calcifications. Calcific subcarinal lymph node. Respiratory motion limits evaluation of the distal segmental and subsegmental pulmonary arteries. Otherwise no filling defects in the pulmonary arteries. UPPER ABDOMEN: Hepatic cysts. Mild dilatation of the right renal pelvis may represent mild hydronephrosis. BONES: The visualized bony thorax is within normal limits. SOFT TISSUES: Unremarkable. IMPRESSION: 1. Mildly limited exam for the evaluation pulmonary emboli due to respiratory motion. No convincing evidence of pulmonary embolism. 2. Moderate burden multifocal bilateral pneumonia/pneumonitis. Findings are typical for Covid 19. 3. Mild/moderate dilatation of the right renal pelvis raises possibility of right hydronephrosis. Signed by: Segun Garcia MD on 12/16/2019 10:58 PM
[2019-12-16] MEDS: CEFTRIAXONE SOD 1 GRAM/0.9% SOD CHL 50ML BAG IV SCH (23:10)
[2019-12-17] VITALS (8 sets, daily range): BP systolic 97–122; BP diastolic 59–85
[2019-12-17] MEDS: ENOXAPARIN SOD INJ 40 MG/0.4 ML SYR SC SCH ×2 (05:29→16:46)
--- NOTE | 2019-12-17 07:00 | NUR ---
RECEIVED PATIENT RESTING NO S/S OF DISTRESS. BED LOW, WHEELS LOCKED, SIDE RAILS X2. CALL LIGHT IN REACH. WILL CONTINUE TO MONITOR PATIENT.
[2019-12-17] MEDS ORDERED: ONDANSETRON HCL 4 MG ORAL DISINTEGRATING TAB PO PRN (08:15)
[2019-12-17] MEDS: ASCORBIC ACID 500 MG TAB PO SCH ×2 (09:06→16:46)
[2019-12-17] MEDS: LOSARTAN POTASSIUM 25 MG TAB PO SCH (09:06)
[2019-12-17] MEDS: ZINC SULFATE 220 MG CAP PO SCH (09:06)
[2019-12-17] MEDS: TAMSULOSIN HCL 0.4 MG CAP PO SCH (09:06)
--- NOTE | 2019-12-17 09:44 | NUR ---
CM called pt in room regarding home O2. Pt directed CM to call his son Taj [phone]. CM called Taj. Explained need for home oxygen and discussed self pay prices. Taj gave choice for [facility]. Choice letter placed in front of chart. Cm explained to Taj that [facility] will need a credit card on file so they will be contacting him once they receive referral. Referral faxed to [facility] at [phone] / Will deliver portable tank once payment received.
--- NOTE | 2019-12-17 11:08 | NUR ---
IM progress note O/N see below ROS; no vision changes/skin rash/cp/dizziness/confusion/focal limb weakness/depression v/s revd PE tired appearing anicteric ns1s2 reduced BS throughout; mildly coarse; soft nt nd no e/t skin dry flat affect a&ox3; toure labs/meds revd A/P: 59yoM Multifocal PNA- ceftriaxone/azithromycin PUlmonary edema- Acute resp failure- [employer] O2 support MARTA- monitor closely; avoid nephrotoxic agents Prop: scd; lovenox; dispo:cct>35mins 7-30 cont care; f/u renal fn; cont care; 7-31 renal fn improving; CXR worse yesterday; supportive care; 8-1 check labs; high O2 needs; cont care; 8-2 leukocytosis resolved; renal fn impoving; flomax; wean O2 as able 8-3 d/c planning; home O2 eval now; 8-4 worsened resp status overnight, with increased O2 needs; monitor closely; supportive care here; Check labs; CT yesterday with persistent lung infiltrates; Check Ambulatory O2 needs. Ildefonso Cast MD, PhD.
--- NOTE | 2019-12-17 11:45 | NUR ---
CM called [facility] and spoke with R[place]. States pt's son already provided payment and they will dispatch to deliver concentrator to the house. Portable oxygen tank was given to [facility] [place] to give to pt.
[2019-12-17 12:03] LABS: BASOPHILS % 0.1 % (0.0-1.0); EOSINOPHILS % 0.2 % (0.0-6.0); HEMATOCRIT 44.3 % (38.2-49.6); HEMOGLOBIN 14.4 g/dL (14.0-18.0); LYMPHOCYTES # (AUTO) 0.6 (1.0-3.2); LYMPHOCYTES % 4.8 % (18.0-39.1); MEAN CORPUSCULAR HEMOGLOBIN 30.4 pg (28-32); MEAN CORPUSCULAR HGB CONC 32.5 g/dL (31-35); MEAN CORPUSCULAR VOLUME 93.5 fL (81-99); MONOCYTES # (AUTO) 0.8 (0.2-0.8); MONOCYTES % 7.2 % (4.4-11.3); NEUTROPHILS # (AUTO) 10.1 (2.1-6.9); NEUTROPHILS % 87.2 % (38.7-80.0); PLATELET COUNT 269 x10e3/uL (140-360); RED BLOOD COUNT 4.74 x10e6/uL (4.3-5.7); RED CELL DISTRIBUTION WIDTH 12.8 % (11.7-14.4)
[2019-12-17 12:18] LABS: ANION GAP 13.8 mmol/L (8-16); BLOOD UREA NITROGEN 33 mg/dL (7-26); BUN/CREATININE RATIO 29 (6-25); CALCIUM 9.1 mg/dL (8.4-10.2); CARBON DIOXIDE 25 mmol/L (22-29); CHLORIDE 105 mmol/L (98-107); CREATININE, SERUM 1.14 mg/dL (0.72-1.25); EST GLOMERULAR FILTRATION RATE > 60 ML/MIN (60-); GLUCOSE 78 mg/dL (74-118); POTASSIUM 4.8 mmol/L (3.5-5.1); SODIUM 139 mmol/L (136-145)
--- NOTE | 2019-12-17 15:03 | NUR ---
SPOKE WITH DR. SOSA REGARDING PATIENT DESATTING TO 88% ON 4LNC ON EXERTION. PATIENT TO STAY ANOTHER NIGHT.
--- NOTE | 2019-12-17 18:19 | Progress Note ---
DATE: SUBJECTIVE: Mr. Austin is doing better. There is no new complaint. REVIEW OF SYSTEMS: Otherwise just shortness of breath. This is day #7. He is out of ICU. PHYSICAL EXAMINATION: GENERAL: He is currently alert. VITAL SIGNS: Stable. Currently afebrile. HEENT: He is not icteric. NECK: Supple. CHEST: Crackles. HEART: S1, S2. ABDOMEN: Soft. We will finish his Rocephin. Continue with Lovenox. Continue with supportive care. To finish 10 days of dexamethasone, today is day #7. MD MEDHAT Tong/MODL /[id number]
--- NOTE | 2019-12-17 19:00 | NUR ---
Patient visited in room during nursing rounds. Patient alert and oriented x3. COVID positive. Ambulatory in room prn. Pt on 3L Humidified NC. Pt on scheduled IV steroid. Patient already has own oxygen tank in room. Call nation within reach. Will monitor closely.
--- NOTE | 2019-12-17 21:35 | NUR ---
Dr. Alexander came and saw pt in room. happy with patient's progress and believes patient might be able to go home soon.
[2019-12-17] MEDS: DEXAMETHASONE SOD PHOS INJ 4 MG/ML VIAL IV SCH (21:56)
[2019-12-18] VITALS: BP 93/64
[2019-12-18 03:55] VITALS: BP 92/66
[2019-12-18] MEDS: ENOXAPARIN SOD INJ 40 MG/0.4 ML SYR SC SCH (05:15)
[2019-12-18] MEDS: LOSARTAN POTASSIUM 25 MG TAB PO SCH (08:12)
--- NOTE | 2019-12-18 08:21 | NUR ---
patient resting in bed, No distress noted, Dr Cast had rounds
[2019-12-18 08:26] VITALS: BP 90/63
[2019-12-18 08:44] VITALS: BP 90/63
[2019-12-18] MEDS: ZINC SULFATE 220 MG CAP PO SCH (09:15)
[2019-12-18] MEDS: ASCORBIC ACID 500 MG TAB PO SCH (09:15)
[2019-12-18] MEDS: TAMSULOSIN HCL 0.4 MG CAP PO SCH (09:15)
--- NOTE | 2019-12-18 10:33 | Progress Note ---
DATE: SUBJECTIVE: The patient is improving on just 3 L nasal cannula, breathing well. PHYSICAL EXAMINATION: VITAL SIGNS: Temperature 97.6, pulse of 82, blood pressure 103/62, and O2 saturation 98% on 3 L. HEENT: Head is atraumatic, normocephalic. CHEST: Clear. ABDOMEN: Soft. NEUROLOGIC: Awake, alert. LABORATORY DATA: Reviewed. Chemistry reviewed. ASSESSMENT/PLAN: Coronavirus disease-19 pneumonia. The patient has improved and can be discharged home on home oxygen. MD GEOVANNA Whitten/MODL /[id number]
[2019-12-18] MEDS ORDERED: TESSALON PERLE100 MG PO (11:29)
--- NOTE | 2019-12-18 12:41 | NUR ---
Patient discharged Home with Home O2, Alert with No distress, Prescription and discharge instruction ,Tele box returned , transported him in wc to front lobby, his son here to pick him
== END 2019-12-18 12:32 | disposition home or self-care (01) | DRG 177 ==
LOC: ER 18:50 → ERHOLD 23:00 → ICU 12-11 07:30 → IMCU 12-13 13:00
PROVIDERS: ADMIT Internal Medicine; ATTEND Internal Medicine
PROC: 8E0ZXY6 Isolation (ICD-10-PCS; principal; 2019-12-10)
DX: U07.1 COVID-19 (principal); J96.00 Acute respiratory failure, unspecified whether with hypoxia or hypercapnia; J96.01 Acute respiratory failure with hypoxia; J12.89 Other viral pneumonia; N17.9 Acute kidney failure, unspecified; I10 Essential (primary) hypertension; Z99.81 Dependence on supplemental oxygen
CPT/HCPCS: 36415; 71045; 71260; 80048; 80053; 81001; 82550; 82553; 83880; 84484; 85025; 85610; 85730; 87040; 93005; 93306; 99285; J0456; J0696; J1100; J1650; J1940; J7050; Q9967; U0002